=== PATIENT | male | born 1990 | race Asian ===

== ENCOUNTER 2023-07-23 12:36 | Emergency (ER) | payer OTHER, SELFPAY ==
--- NOTE | ~2023-07-23 | XR_ITS ---
EXAMINATION: XR CHEST CLINICAL INFORMATION: Cough. COMPARISON: None available. TECHNIQUE: Frontal view of the chest was obtained. FINDINGS: The lungs are well expanded. No focal consolidation. No pleural effusion. Cardiac silhouette is within normal limits. XR/XR chest 1V IMPRESSION: No acute abnormality.
[2023-07-23 13:06] LABS: MANUAL DIFF FLAG NO
[2023-07-23 13:11] LABS: Basophils Absolute Auto 0.1 X10*3/uL (0.0-0.2); Basophils Percent Auto 0.7 % (0-2); Eosinophils Absolute Auto 0.3 X10*3/uL (0.0-0.4); Eosinophils Percent Auto 3.5 % (0-4); Hematocrit 49.9 % (42.0-52.0); Imm Gran Abs Auto 0.02 X10*3/uL (0.00-0.03); Imm Gran Pct Auto 0.2 % (0.0-0.4); Lymphocytes Absolute Auto 1.6 X10*3/uL (1.2-4.9); Mean Corpuscular HGB Conc 34.1 g/dl (31.0-36.0); Mean Corpuscular Hemoglobin 28.1 pg (27.0-33.0); Mean Corpuscular Volume 82.6 fL (80.0-98.0); Mean Platelet Volume 9.3 fL (9.4-12.4); Monocytes Absolute Auto 0.6 X10*3/uL (0.1-1.2); Monocytes Percent Auto 7.1 % (2-11); Neutrophils Absolute Auto 6.3 x10*3/uL (2.0-8.3); Neutrophils Percent Auto 70.5 % (45-73); Platelet Count 223 X10*3/uL (160-400); Red Blood Count 6.04 X10*6/uL (4.60-5.80); White Blood Count 8.9 X10*3/uL (4.8-10.8)
--- NOTE | 2023-07-23 13:11 | ED.GENADULT ---
HPI - General Adult General Chief complaint: Upper Respiratory Symptoms Stated complaint: cough Time Seen by Provider: 07/23/23 13:28 Source: patient Mode of arrival: ambulatory Limitations: no limitations History of Present Illness HPI narrative: This is a 33-year-old male without significant medical history presenting to the emergency department with complaints of nonproductive cough it has been going on since late May after testing COVID positive valgus, reports cough has been present ever since, has been fluctuating in intensity however acutely worsening over the past few days. Patient has tried Combivent with some relief. And has tried multiple antitussives [id number]. Patient reports he has coughing fits throughout the day that are very uncomfortable. Denies shortness of breath, chest pain, fevers, chills, headache, vision changes, dizziness, weakness, nausea, vomiting, abdominal pain. Patient has not yet taking antibiotics or oral steroids for this. Related Data Previous Rx's Medication Instructions Recorded albuterol sulfate 90 mcg/actuation 2 inh inhalation Q4-6H PRN 07/23/23 breath activated powder inhaler shortness of breath or wheezing #1 ea benzonatate 100 mg capsule 100 mg PO BID PRN cough #20 caps 07/23/23 doxycycline hyclate 100 mg capsule 100 mg PO BID 10 days #20 caps 07/23/23 prednisone 50 mg tablet 50 mg PO DAILY 5 days #5 tabs 07/23/23 Allergies Allergy/AdvReac Type Severity Reaction Status Date / Time Sulfa (Sulfonamide Allergy Unknown Verified 07/23/23 13:14 Antibiotics) Review of Systems Review of Systems: Constitutional : No Weight loss, No Fever, No Chills, No Fatigue, No Malaise ENT/Mouth : No sore throat, No Rhinorrhea Eyes: No Eye Pain, No Swelling, No Redness Cardiovascular : No Chest Pain, No SOB, No Dyspnea on Exertion, No Orthopnea, No Edema, No Palpitations Respiratory : + Cough, No Sputum, No Wheezing Gastrointestinal : No Nausea, No Vomiting, No Diarrhea, No Constipation, No abdominal Pain, No Hematochezia, No Melena Genitourinary : No Dysuria, No Urinary Frequency, No Hematuria, Musculoskeletal : No joint pain, No Myalgias, No Joint Swelling Skin : No Skin Lesions, No rash Neuro : No Weakness, No Numbness, No Dizziness, No Headache Psych : No Anxiety/Panic, No Depression All other systems reviewed and are negative Yes all other systems are reviewed and are negative [facility] Past Medical History Attestation statement: The following information was validated with the patient. Source: old records reviewed and nursing notes reviewed Social History Social History Advance Directives: No Advance Directives Information Provided: No Physical Exam ED Vital Signs: Vital Signs - 24 hr 07/23/23 13:12 07/23/23 14:13 Temperature 98.6 F 98.2 F Pulse Rate 115 H 103 H Respiratory Rate 16 16 Blood Pressure 161/111 H 143/90 H Pulse Oximetry 98 Oxygen Delivery Method Room Air Room Air BMI result Body Mass Index 33.4 vss Appearance: Alert.? Oriented X3.? No acute distress.?Patient w/ intermittent dry cough during exam Head: Normocephalic, atraumatic, no step-offs or deformities Eyes: Pupils equal, round and reactive to light.? Neck: Normal inspection.? Neck supple.? CVS: Normal heart rate and rhythm.? Pulses normal.? Respiratory: No respiratory distress.? Breath sounds normal.? Abdomen: Soft and nontender.? Skin: Skin warm and dry.? Normal skin color.? Normal skin turgor.? Extremities: No lower extremity edema.? No calf ttp. 5/5 strength to bilateral upper and lower extremities Neuro: Oriented X 3.? No motor deficit.? No sensory deficit. CN 2-12 intact Course Course Course Narrative: RME performed by Fannie Velazquez PA-C. Patient is a 33 year old assigned male at presenting to the emergency department with a persistent cough post COVID-19 diagnosis in May. Labs and imaging ordered. Patient placed back in the waiting room pending room availability and results. Reevaluation(s) Reevaluation #1: X-ray no acute abnormality. CBC no acute findings requiring immediate intervention. Chemistry unremarkable. At this time patient to be discharged home with doxycycline, albuterol, prednisone. Educated patient on diagnosis and treatment plan, answered all question, patient verbalizes understanding. At this time patient will be discharged home, advised to return with new or worsening symptoms. Educated on worrisome signs and symptoms and when to return. At this time I feel comfortable discharge home. Time: 14:22 Medical Decision Making Medical Decision Making [facility] Narrative: 1400 33 year old male presents w/ cough since late agust not improving PE benign (initially patient was tachycardic and hypertensive likely secondary to acute cough.) Likely bronchitis. Unlikely pneumonia, pulmonary embolism, acute respiratory distress. I do not suspect atypical presentation of ACS. Other differentials include asthma and allergies. Plan at this time basic labs, x-ray. Differential Diagnosis Differential Diagnoses: The differential diagnosis associated with the presentation includes Likely bronchitis. Unlikely pneumonia, pulmonary embolism, acute respiratory distress. I do not suspect atypical presentation of ACS. Other differentials include asthma and allergies. Admission/Observation Consideration of admission/observation: Escalation of care including admission/observation considered Unlikely Lab Data [facility] Lab Attestation statement: I reviewed the patient's lab results. 07/23/23 13:03 07/23/23 13:03 Labs: Lab Results 07/23/23 Range/Units 13:03 WBC 8.9 (4.8-10.8) X10*3/uL RBC 6.04 H (4.60-5.80) X10*6/uL Hgb 17.0 (14.0-18.0) g/dl Hct 49.9 (42.0-52.0) % MCV 82.6 (80.0-98.0) fL MCH 28.1 (27.0-33.0) pg MCHC 34.1 (31.0-36.0) g/dl RDW 13.0 (11.0-16.0) % Plt Count 223 (160-400) X10*3/uL MPV 9.3 L (9.4-12.4) fL Immature Gran % (Auto) 0.2 (0.0-0.4) % Neut % (Auto) 70.5 (45-73) % Lymph % (Auto) 18.0 L (20-40) % Wil[place]ger % (Auto) 7.1 (2-11) % Eos % (Auto) 3.5 (0-4) % Baso % (Auto) 0.7 (0-2) % Lymph # (Auto) 1.6 (1.2-4.9) X10*3/uL [place]ger # (Auto) 0.6 (0.1-1.2) X10*3/uL Eos # (Auto) 0.3 (0.0-0.4) X10*3/uL Baso # (Auto) 0.1 (0.0-0.2) X10*3/uL Abs Immat Gran (auto) 0.02 (0.00-0.03) X10*3/uL Absolute Neuts (auto) 6.3 (2.0-8.3) x10*3/uL Absolute Nucleated RBC 0.000 (0.0-0.012) X10*3/uL Nucleated RBC % (auto) 0.0 (0.0-0.2) /100WBC Sodium 139 (135-145) mmol/L Potassium 4.2 (3.3-5.1) mmol/L Chloride 104 (96-108) mmol/L Carbon Dioxide 25 (22-29) mmol/L Anion Gap 14 (12-20) BUN 9 (9-16) mg/dL Creatinine 0.94 (0.5-1.4) mg/dL Estim Creat Clear Calc 153.9 Estimated GFR > 60 Random Glucose 96 (60-115) mg/dL Calcium 10.0 (8.4-10.2) mg/dL Magnesium 2.2 (1.6-2.6) mg/dL Total Bilirubin 0.7 (0.0-1.0) mg/dL AST 24 (5-37) U/L ALT 42 H (0-40) U/L Alkaline Phosphatase 72 (39-117) U/L Total Protein 8.1 H (6.5-8.0) g/dL Albumin 4.6 (3.5-5.0) g/dL Independent Interpretation I performed an independent interpretation of an: Plain X-Ray ( XR/XR chest 1V IMPRESSION: No acute abnormality.) Radiology Impression Discussion of test interpretation with radiology: I have reviewed the radiologist's reading. Prescription Management I considered prescription management with: Antibiotic and Other (Albuterol, prednisone.) Discharge Plan Discharge Clinical Impression: Bronchitis Patient Disposition: Home, Self-Care Instructions: Acute Bronchitis (ED) Additional Instructions: Take your medications as prescribed. If you were prescribed antibiotics today, it is important that you take your medication to their entirety, do not skip any doses, do not finish them early. Follow-up with your primary care provider this week. Return to the emergency department with new or worsening symptoms. Such as fevers, chills, chest pain, shortness of breath, nausea, vomiting, dizziness, headache, vision changes, lethargy In case of emergency call 911 XR/XR chest 1V IMPRESSION: No acute abnormality. Prescriptions: New doxycycline hyclate 100 mg capsule 100 mg PO BID 10 Days Qty: 20 0RF benzonatate 100 mg capsule 100 mg PO BID PRN (Reason: cough) Qty: 20 0RF prednisone 50 mg tablet 50 mg PO DAILY 5 Days Qty: 5 0RF albuterol sulfate 90 mcg/actuation aerosol powdr breath activated 2 inh inhalation Q4-6H PRN (Reason: shortness of breath or wheezing) Qty: 1 0RF Referrals: Physician,None [Primary Care Provider] - 2 days [facility] [place] [facility] [Provider Group] - 3 days Stand Alone Forms: Work/School Release
[2023-07-23 13:12] VITALS: BP 161/111; PULSE 115; RESP 16; TEMP 37; BMI 33.4
[2023-07-23 13:26] LABS: Alanine Aminotransferase 42 U/L (0-40); Albumin Level 4.6 g/dL (3.5-5.0); Alkaline Phosphatase 72 U/L (39-117); Anion Gap 14 (12-20); Aspartate Amino Transferase 24 U/L (5-37); Bilirubin Total 0.7 mg/dL (0.0-1.0); Blood Urea Nitrogen 9 mg/dL (9-16); Carbon Dioxide 25 mmol/L (22-29); Chloride 104 mmol/L (96-108); Creatinine Clr Calc Pharmacy 153.9; Estimated Glomerular Filt Rate > 60; Glucose Random 96 mg/dL (60-115); Magnesium 2.2 mg/dL (1.6-2.6); Potassium 4.2 mmol/L (3.3-5.1); Sodium 139 mmol/L (135-145); Total Protein 8.1 g/dL (6.5-8.0)
[2023-07-23 14:13] VITALS: BP 143/90; PULSE 103; RESP 16; TEMP 36.8; O2SAT 98
== END 2023-07-23 14:28 | disposition home or self-care (01) ==
PROVIDERS: Physician Assistant; Emergency Provider Emergency Medicine
DX: J40 Bronchitis, not specified as acute or chronic (principal)
CPT/HCPCS: 36415; 71045; 80053; 83735; 85025; 99283